=== PATIENT | male | born 1940 | race Caucasian/White ===

== ENCOUNTER 2019-08-02 13:25 | Outpatient (CLI) | payer MEDICARE, BC, SELFPAY | END 2019-08-02 13:26 | disposition home or self-care (01) | LOC: ONCMED 15:42 | PROVIDERS: Family Provider Family Medicine; Visit Provider Radiology Radiation Oncology | DX: C61 Malignant neoplasm of prostate (principal) | CPT/HCPCS: 84153 ==

== ENCOUNTER 2020-08-25 08:34 | Outpatient (CLI) | payer MEDICARE, BC, SELFPAY ==
--- NOTE | 2020-08-25 09:44 | ONCRAD EPV_ITS ---
Radiation Oncology Follow-Up Note Patient Name: Alex Krishna Date of : 1940 Date of Service: 08/25/2020 Attending Physician: Alistair Pelaez M.D. Alex Krishna returned to my office this morning. 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 His pretreatment PSA was 6.5 ng/mL. A TRUS biopsy identified a Jm???s Score of 4+5=10. Neoadjuvant androgen suppression was prescribed (Firmagon & Trelstar). Pelvic radiation therapy was delivered between the dates of April 17, 2017 through, June 17, 2017. A prescribed dose of 79 Gy was delivered in 42 fractions encompassing 62 elapsed days. On review of systems, he described onset of intermittent fecal incontinence and diarrhea without hematochezia. On physical examination, the patient weighed 175 pounds. His temperature was 97.2???F and his blood pressure was 169/85 mmHg. The pulse was 50 bpm and his respiratory rate was 18 breaths per minute In summary, Mr. Krishna was evaluated for fecal incontinence. I will obtain labs and have requested a colorectal surgery evaluation. Signed by: Dr. Alistair Pelaez 08/25/2020 9:43:13 AM
[2020-08-25 10:10] LABS: Basophils # 0.1 10^3/uL (0.0-0.1); Basophils % 1.2 %; Eosinophils # 0.1 10^3/uL (0.0-0.8); Eosinophils % 1.3 %; Hematocrit 44.3 % (42.0-52.0); Hemoglobin 14.6 g/dL (11.7-16.6); Lymphocytes # 1.5 10^3/uL (0.8-4.8); Lymphocytes % 24.3 %; Mean Corpuscular Hemoglobin 32.4 pg (28.0-34.0); Mean Corpuscular Volume 98.2 fL (80-94); Mean Platelet Volume 10.7 fL (7.4-10.4); Monocytes # 0.5 10^3/uL (0.2-0.9); Monocytes % 7.5 %; Neutrophils % 65.4 %; Nucleated Red Blood Cells % 0 %; Platelet Count 208 10^3/cmm (130-400); Red Blood Count 4.51 10^6/uL (4.1-5.3); Red Cell Distribution Width 12.9 % (12.1-15.1)
[2020-08-25 10:39] LABS: Alanine Aminotransferase 13 U/L (0-41); Albumin Level 4.2 g/dL (3.5-5.2); Alkaline Phosphatase 51 IU/L (40-130); Anion Gap 11.1 (5-19); Aspartate Amino Transferase 21 U/L (0-40); Blood Urea Nitrogen 26 mg/dL (8-23); Calcium 8.6 mg/dL (8.5-10.5); Carbon Dioxide 28 mmol/L (22-29); Chloride 102 mmol/L (98-107); Globulin 2.8 g/dL (1.3-4.6); Glucose 104 mg/dL (65-115); Osmolality Calculated 289 mOsm/kg (285-295); Potassium 4.1 mmol/L (3.5-5.1); Sodium 137 mmol/L (136-145); Total Bilirubin 0.6 mg/dL (0.15-1.2)
== END 2020-08-25 08:35 | disposition home or self-care (01) ==
LOC: ONCMED 08:39
PROVIDERS: PCP Family Medicine; Visit Provider Radiology Radiation Oncology
DX: C61 Malignant neoplasm of prostate (principal)
CPT/HCPCS: 36415; 80053; 85025

== ENCOUNTER → 2025-04-25 10:19 | Outpatient (BNVA) | payer MEDICARE, SELFPAY | PROVIDERS: PCP Family Medicine; Visit Provider Specialist | DX: G30.9 Alzheimer's disease, unspecified (principal); F02.80 Dementia in other diseases classified elsewhere, unspecified severity, without behavioral disturbance, psychotic disturbance, mood disturbance, and anxiety; R55 Syncope and collapse | CPT/HCPCS: 36415; 82233; 82234; 82542; 82607; 82746; 83520; 99205 ==

== ENCOUNTER 2025-05-10 15:08 | Outpatient (CLI) | payer MEDICARE, SELFPAY ==
--- NOTE | 2025-05-10 15:30 | CT_ITS ---
WS: [id number] CT HEAD TECHNIQUE: Noncontrast CT of the head obtained from the skullbase to the vertex. CLINICAL INFORMATION: R55 - Syncope and collapse COMPARISON: None. DLP: 1543.[address] scans at [facility] use at least one of these dose optimization techniques: automated exposure control; mA and/or kV adjustment per patient size (includes targeted exams where dose is matched to clinical indication); or iterative reconstruction. FINDINGS: No evidence of intracranial hemorrhage or mass effect. Ventricular system and basal cisterns are patent. Moderate small vessel changes with moderate parenchymal volume loss. No extra-axial fluid collections. No evidence of mass or mass effect. Vascular calcification. Mild dilatation of the ventricular system may be incidental but can be seen with normal pressure hydrocephalus in the appropriate clinical setting. Mild bowing of the frontal horns, third ventricle, and temporal horns. No transependymal edema Paranasal sinuses and mastoid air cells are well aerated. Trace fluid RIGHT maxillary sinus. CT/CT head wo con* [id number] IMPRESSION: 1. No evidence of intracranial hemorrhage or mass effect. 2. Moderate small vessel changes with moderate parenchymal volume loss. 3. Mild dilatation of the ventricular system can be seen with normal pressure hydrocephalus in the appropriate clinical setting. No transependymal edema 4. Dense cavernous carotid calcification 5. No other suspicious findings.
--- NOTE | 2025-05-10 15:30 | CT_ITS ---
WS: [id number] CTA HEAD AND NECK TECHNIQUE: Contrast enhanced CTA of the head and neck with coronal and sagittal reformatted images and maximum intensity projection (MIP) images. NASCET criteria utilized. CLINICAL INFORMATION: R55 - Syncope and collapse COMPARISON: None. DLP: 1543.[address] scans at [facility] use at least one of these dose optimization techniques: automated exposure control; mA and/or kV adjustment per patient size (includes targeted exams where dose is matched to clinical indication); or iterative reconstruction. FINDINGS: RIGHT: RIGHT common carotid artery is patent. Moderate calcified thrombus plaque RIGHT carotid bulb extending into the ICA. RIGHT ICA is patent to the skull base. Less than 50% RIGHT ICA stenosis. LEFT: LEFT common carotid artery is patent. Moderate atheromatous plaque LEFT carotid bulb extending into the ICA. LEFT ICA is patent to the skull base. Less than 50% LEFT ICA stenosis. INTRACRANIAL CTA: LEFT dominant vertebral artery. Smaller but patent RIGHT vertebral artery. Basilar artery is patent. Normal vascularity to the [employer] territory bilaterally. Patent LEFT posterior communicating artery. Both ICAs are patent at the skull base. Mild cavernous carotid calcification. Normal vascularity to the DENNISE territory. Normal vascularity to the MCA territory bilaterally. No evidence of proximal flow-limiting stenosis. Proximal subclavian arteries are patent. Small bilateral thyroid nodules. Fibrosis in the lung apices. Moderate spondylitic changes cervical spine CT/CT angio headneck* [id number] IMPRESSION: 1. Moderate calcified atheromatous plaque at both carotid bulbs. Less than 50% ICA stenosis bilaterally. 2. No proximal flow-limiting intracranial stenosis. 3. LEFT dominant vertebral artery. Smaller but patent RIGHT vertebral artery.
[2025-05-10 15:34] LABS: Blood Urea Nitrogen 27 mg/dL (8-23)
[2025-05-10] MEDS: iohexol 350 mg/mL 500 mL Btl (per mL) IV (15:48)
== END 2025-05-10 15:09 | disposition home or self-care (01) ==
LOC: RAD 15:09
PROVIDERS: PCP Family Medicine; Visit Provider Specialist
DX: R55 Syncope and collapse (principal); E04.2 Nontoxic multinodular goiter; J84.10 Pulmonary fibrosis, unspecified; M47.812 Spondylosis without myelopathy or radiculopathy, cervical region; I65.23 Occlusion and stenosis of bilateral carotid arteries; I67.82 Cerebral ischemia; G93.89 Other specified disorders of brain
CPT/HCPCS: 70450; 70496; 70498; 82565; 84520